=== PATIENT | male | born 2000 | race Two or more races ===

== ENCOUNTER 2023-11-10 04:43 | Outpatient (CLI) | payer OTHER | END 2023-11-10 23:59 | disposition critical access hospital (66) | LOC: EMS 04:43 | DX: M25.552 Pain in left hip (principal); R10.9 Unspecified abdominal pain; S60.512A Abrasion of left hand, initial encounter; S60.511A Abrasion of right hand, initial encounter; M54.2 Cervicalgia; V89.0XXA Person injured in unspecified motor-vehicle accident, nontraffic, initial encounter; Y93.89 Activity, other specified; Y92.89 Other specified places as the place of occurrence of the external cause | CPT/HCPCS: A0425; A0429 ==

== ENCOUNTER 2023-11-10 05:05 | Emergency (ER) | payer OTHER ==
[2023-11-10] MEDS ORDERED: iohexoL-300 100 ML VIAL ONE (05:15)
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
[2023-11-10 05:36] LABS: BASOPHILS # (AUTO) 0.1 10^3/uL (0.0-0.1); BASOPHILS % (AUTO) 0.5 %; EOSINOPHILS % (AUTO) 0.1 %; HCT - HEMATOCRIT 47.9 % (42.0-52.0); HGB - HEMOGLOBIN 15.8 g/dL (14.0-18.0); LYMPHOCYTES # (AUTO) 1.9 10^3/uL (1.5-3.5); LYMPHOCYTES % (AUTO) 18.8 %; MEAN CORPUSCULAR HEMOGLOBIN 29.5 pg (27.0-31.0); MEAN CORPUSCULAR VOLUME 89.4 fL (80.0-94.0); MEAN PLATELET VOLUME 9.8 fL (7.4-11.4); MONOCYTES # (AUTO) 0.4 10^3/uL (0.0-1.0); MONOCYTES % (AUTO) 4.1 %; NEUTROPHILS # (AUTO) 7.6 10^3/uL (1.5-6.6); PLT - PLATELET COUNT 277 10^3/uL (130-450); RED BLOOD COUNT 5.36 10^6/uL (4.70-6.10); RED CELL DISTRIBUTION WIDTH 12.6 % (12.0-15.0)
[2023-11-10 05:53] LABS: ALBUMIN/GLOBULIN RATIO 1.6 (1.0-2.2); BILIRUBIN,TOTAL 0.5 mg/dL (0.2-1.0); CALCIUM 9.5 mg/dL (8.5-10.3); CREATININE 1.1 mg/dL (0.6-1.3); ETOH - ETHANOL 204.1 mg/dL; POTASSIUM 3.8 mmol/L (3.5-4.5); TOTAL PROTEIN 8.1 g/dL (6.4-8.9)
[2023-11-10] MEDS: iohexoL-300 100 ML VIAL IVP ONE (06:11)
[2023-11-10 06:45] VITALS: O2SAT 96
[2023-11-10] MEDS: ACETAMINOPHEN 500 MG TABLET PO STA (07:09)
[2023-11-10] MEDS: KETOROLAC 15 MG/ML VIAL IVP STA (07:09)
[2023-11-10 07:16] VITALS: BP 135/92
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
== END 2023-11-10 07:33 | disposition home or self-care (01) ==
LOC: ED 05:05
DX: S70.212A Abrasion, left hip, initial encounter (principal); S10.93XA Contusion of unspecified part of neck, initial encounter; S39.011A Strain of muscle, fascia and tendon of abdomen, initial encounter; V89.2XXA Person injured in unspecified motor-vehicle accident, traffic, initial encounter; Y93.89 Activity, other specified; Y92.410 Unspecified street and highway as the place of occurrence of the external cause; Y90.7 Blood alcohol level of 200-239 mg/100 ml
CPT/HCPCS: 36415; 70450; 71045; 72125; 74177; 80053; 82077; 83605; 83690; 85025; 96374; 99284; A9270; Q9967